=== PATIENT | female | born 1990 | race Caucasian/White ===

== ENCOUNTER 2018-03-30 13:10 | Emergency (ER) | payer OTHER ==
[~2018-03-30] VITALS: Ht 152.4 cm; Wt 69.9 kg
[~2018-03-30 13:10] MED LIST: benadryl; prednisone
[2018-03-30 13:15] VITALS: BP 132/82
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
[2018-03-30 13:39] VITALS: BP 130/80
--- NOTE | 2018-03-30 13:39 | NUR ---
Patient discharged with v/s stable. Written and verbal after care instructions given and explained. Patient verbalized understanding. Ambulatory with steady gait. All questions addressed prior to discharge. Advised to follow up with PMD.
== END 2018-03-30 13:39 | disposition home or self-care (01) ==
LOC: MED 13:10
DX: Z02.89 Encounter for other administrative examinations (principal)
CPT/HCPCS: 99283

== ENCOUNTER 2019-03-13 19:54 | Emergency (ER) | payer OTHER ==
[~2019-03-13] VITALS: Ht 152.4 cm; Wt 66.7 kg
[2019-03-13 19:59] VITALS: BP 108/71
--- NOTE | 2019-03-13 21:40 | NUR ---
PT DID NOT RESPOND WHEN CALLED IN LOBBY
--- NOTE | 2019-03-13 21:50 | NUR ---
PT WAS CALLED, NO ANSWER IN LOBBY.
--- NOTE | 2019-03-13 23:18 | NUR ---
CALLED FOR PT, NO ANSWER IN LOBBY, PT LWBS AT [phone]
== END 2019-03-13 23:18 | disposition left against medical advice (07) ==
LOC: MED 19:54
DX: R11.2 Nausea with vomiting, unspecified (principal); R50.9 Fever, unspecified; R10.9 Unspecified abdominal pain; Z53.21 Procedure and treatment not carried out due to patient leaving prior to being seen by health care provider

== ENCOUNTER 2021-07-15 17:55 | Emergency (ER) | payer OTHER ==
[~2021-07-15] VITALS: Ht 152.4 cm; Wt 78.0 kg
[2021-07-15 18:34] VITALS: BP 117/71
--- NOTE | 2021-07-15 18:40 | NUR ---
PT SENT TO LOBBY
[2021-07-15 19:17] LABS: BASOPHILS % (AUTO) 0.6 % (0.0-2.0); EOSINOPHILS # (AUTO) 0.8 K/uL (0-0.4); EOSINOPHILS % (AUTO) 12.9 % (0.0-4.0); HEMATOCRIT 35.3 % (36-48); HEMOGLOBIN 11.6 g/dL (12.0-16.0); LYMPHOCYTES # (AUTO) 2.1 K/uL (2.5-16.5); LYMPHOCYTES % (AUTO) 33.8 % (20.5-51.1); MEAN CORPUSCULAR HEMOGLOBIN 27 pg (27-31); MEAN CORPUSCULAR HGB CONC 33 g/dL (33-37); MEAN CORPUSCULAR VOLUME 83.2 fL (80-94); MONOCYTES # (AUTO) 0.7 K/uL (0.8-1.0); MONOCYTES % (AUTO) 10.7 % (1.7-9.3); NEUTROPHILS # (AUTO) 2.6 K/uL (1.8-7.7); PLATELET COUNT (AUTO) 314 K/uL (140-450); RED BLOOD CELL COUNT(AUTO) 4.24 MIL/uL (4.20-5.40); WHITE BLOOD COUNT (AUTO) 6.2 K/uL (4.8-10.8)
[2021-07-15 19:55] LABS: ALBUMIN 3.7 g/dL (3.4-5.0); ANION GAP 13.7 (8-16); CARBON DIOXIDE 24.2 mmol/L (21-32); CREATININE 0.8 mg/dL (0.6-1.3); POTASSIUM 3.9 mmol/L (3.5-5.1); TOTAL BILIRUBIN 0.1 mg/dL (0.0-1.0)
[2021-07-15 21:00] VITALS: BP 117/71
== END 2021-07-15 21:00 | disposition home or self-care (01) ==
LOC: MED 17:55
DX: F41.9 Anxiety disorder, unspecified (principal); R20.2 Paresthesia of skin
CPT/HCPCS: 36415; 71045; 80053; 85025; 93005; 93970; 99285; Q0092

== ENCOUNTER 2022-11-07 00:25 | Emergency (ER) | payer OTHER ==
[~2022-11-07] VITALS: Ht 167.6 cm; Wt 78.5 kg
[2022-11-07 00:45] VITALS: BP 113/60
--- NOTE | 2022-11-07 00:52 | NUR ---
PT TAKEN TO BED 11
[2022-11-07 01:31] LABS: BASOPHILS % (AUTO) 0.5 % (0.0-2.0); EOSINOPHILS # (AUTO) 0.4 K/uL (0-0.4); EOSINOPHILS % (AUTO) 5.1 % (0.0-4.0); HEMATOCRIT 23.4 % (36-48); HEMOGLOBIN 7.6 g/dL (12.0-16.0); LYMPHOCYTES % (AUTO) 13.8 % (20.5-51.1); MEAN CORPUSCULAR HEMOGLOBIN 25 pg (27-31); MEAN CORPUSCULAR HGB CONC 33 g/dL (33-37); MEAN CORPUSCULAR VOLUME 75.1 fL (80-94); MONOCYTES # (AUTO) 0.6 K/uL (0.8-1.0); MONOCYTES % (AUTO) 8.3 % (1.7-9.3); NEUTROPHILS # (AUTO) 5.3 K/uL (1.8-7.7); NEUTROPHILS % (AUTO) 72.3 % (42.2-75.2); PLATELET COUNT (AUTO) 228 K/uL (140-450); RED BLOOD CELL COUNT(AUTO) 3.12 MIL/uL (4.20-5.40); RED CELL DISTRIBUTION WIDTH 18.4 % (11.6-13.7); WHITE BLOOD COUNT (AUTO) 7.3 K/uL (4.8-10.8)
[2022-11-07 01:45] LABS: PROTHROMBIN TIME 11.8 secs (10.8-13.4)
[2022-11-07 01:47] LABS: ALBUMIN 3.4 g/dL (3.4-5.0); ANION GAP 11.1 (8-16); CARBON DIOXIDE 24.3 mmol/L (21-32); CREATININE 0.8 mg/dL (0.6-1.3); POTASSIUM 3.4 mmol/L (3.5-5.1); TOTAL BILIRUBIN 0.3 mg/dL (0.0-1.0)
[2022-11-07 01:57] LABS: APPEARANCE,URINE CLOUDY (CLEAR); BILIRUBIN,URINE NEGATIVE (NEGATIVE); BLOOD, URINE 3+ (NEGATIVE); COLOR,URINE RED (YELLOW); LEUKOCYTE ESTERASE ,URINE 1+ (NEGATIVE); NITRITE, URINE POSITIVE (NEGATIVE); UGLUCOSE TRACE (NEGATIVE)
[2022-11-07 02:13] LABS: RBC,URINE 80-100 /HPF (0-5)
[2022-11-07 02:47] VITALS: BP 113/60
--- NOTE | 2022-11-07 02:47 | NUR ---
PATIENT ELOPED FROM FACILITY. DISCHARGE INSTRUCTIONS NOT GIVEN TO PATIENT. DR. henderson NOTIFIED.
== END 2022-11-07 02:47 | disposition left against medical advice (07) ==
LOC: MED 00:25
DX: N93.9 Abnormal uterine and vaginal bleeding, unspecified (principal); R53.1 Weakness; R55 Syncope and collapse; Z53.21 Procedure and treatment not carried out due to patient leaving prior to being seen by health care provider
CPT/HCPCS: 36415; 80053; 81001; 81025; 85025; 85610; 85730; 87086; 99281; 99283

== ENCOUNTER 2022-11-10 10:54 | Observation (INO) | payer OTHER ==
[~2022-11-10] VITALS: Ht 152.4 cm; Wt 78.9 kg
[2022-11-10 11:14] VITALS: BP 110/70
--- NOTE | 2022-11-10 11:30 | NUR ---
PT AMBULATED TO BED 5
--- NOTE | 2022-11-10 11:33 | NUR ---
KAMRON BERNABE AT BEDSIDE FOR EVALUATION
--- NOTE | 2022-11-10 11:56 | NUR ---
32 YO F PRESENTS W/RLQ PAIN X 2 DAYS AND BLEEDING NONE STOP SINCE 10/05/22, FAINT EPISODE 2 DAYS AGO. DENIES N,V,D,C, GÓMEZ, URINARY SYMPTOMS, SAFETY MAINTAINED. P:2 A:0
[2022-11-10 11:59] LABS: EOSINOPHILS # (AUTO) 0.4 K/uL (0-0.4); EOSINOPHILS % (AUTO) 5.2 % (0.0-4.0); LYMPHOCYTES # (AUTO) 1.3 K/uL (2.5-16.5); MONOCYTES # (AUTO) 0.6 K/uL (0.8-1.0); NEUTROPHILS # (AUTO) 5.1 K/uL (1.8-7.7); NEUTROPHILS % (AUTO) 68.9 % (42.2-75.2); WHITE BLOOD COUNT (AUTO) 7.4 K/uL (4.8-10.8)
--- NOTE | 2022-11-10 12:08 | NUR ---
US AT BEDSIDE
[2022-11-10 12:11] LABS: ALBUMIN 3.5 g/dL (3.4-5.0); ANION GAP 11.3 (8-16); CARBON DIOXIDE 24.6 mmol/L (21-32); CREATININE 0.6 mg/dL (0.6-1.3); POTASSIUM 3.9 mmol/L (3.5-5.1); TOTAL BILIRUBIN 0.3 mg/dL (0.0-1.0)
[2022-11-10 12:13] LABS: BASOPHILS % (AUTO) 0.4 % (0.0-2.0); HEMATOCRIT 21.3 % (36-48); LYMPHOCYTES % (AUTO) 17.6 % (20.5-51.1); MEAN CORPUSCULAR HEMOGLOBIN 25 pg (27-31); MEAN CORPUSCULAR HGB CONC 33 g/dL (33-37); MEAN CORPUSCULAR VOLUME 74.7 fL (80-94); MONOCYTES % (AUTO) 7.9 % (1.7-9.3); PLATELET COUNT (AUTO) 256 K/uL (140-450); RED BLOOD CELL COUNT(AUTO) 2.86 MIL/uL (4.20-5.40); RED CELL DISTRIBUTION WIDTH 17.8 % (11.6-13.7)
[2022-11-10 12:18] LABS: APPEARANCE,URINE CLEAR (CLEAR); BILIRUBIN,URINE NEGATIVE (NEGATIVE); BLOOD, URINE 3+ (NEGATIVE); COLOR,URINE YELLOW (YELLOW); LEUKOCYTE ESTERASE ,URINE 1+ (NEGATIVE); NITRITE, URINE NEGATIVE (NEGATIVE); UGLUCOSE NEGATIVE (NEGATIVE)
[2022-11-10 12:52] LABS: RBC,URINE 20-50 /HPF (0-5); TRICHOMONAS,URINE None Seen /HPF (None Seen); YEAST,URINE None Seen /HPF (None Seen)
[2022-11-10] MEDS ORDERED: ACETAMINOPHEN 325 MG TAB PO PRN (12:55)
[2022-11-10] MEDS ORDERED: MAGNESIUM OXIDE 400 MG TAB PO PRN (12:55)
[2022-11-10] MEDS ORDERED: POTASSIUM CHLORIDE 10 MEQ TABER PO PRN (12:55)
[2022-11-10] MEDS ORDERED: ONDANSETRON 4 MG/2 ML VIAL IVP PRN (12:55)
[2022-11-10] MEDS: NACL 0.9% 1,000 ML IV SCH (13:29)
--- NOTE | 2022-11-10 14:00 | NUR ---
RECEIVED PT FROM ED. PATIENT SENSITIVE TO TOUCH. ESTABLISHED RAPORT WITH PATIENT. PATIENT REASSURED. TUCKED IN BED. PATIENT LOOKS RELAXED NOW THAT SHE HAS BEEN PUT INTO A ROOM.
--- NOTE | 2022-11-10 14:20 | NUR ---
Patient will be admitted to care of MD GARCIA. Admited to TELE. Will go to room 111B. Belongings list completed. Report to JOSE ANGEL OSWALD.
--- NOTE | 2022-11-10 14:21 | NUR ---
The patient's care was reviewed and supervised by Karol Nelson, RN, RN.
--- NOTE | 2022-11-10 14:50 | NUR ---
PATIENT SEEN AND ASSESSED FOR ADMISSION. PATIENT ASKS WHAT ARE THE PLANS AND PATIENT IS TOLD, FURTHER TESTS WILL BE DONE TO DETERMINE CAUSE OF BLEEDING PER DOCTOR'S ORDERS AND NOTES. PATIENT VERBALIZES UNDERSTANDNG.
--- NOTE | 2022-11-10 15:00 | NUR ---
PATIENT BLOOD READY IN BLOOD BANK. HOWEVER NO SIGNED CONSENT FORM PRESENT. CONSENT FORMS PRINTED
--- NOTE | 2022-11-10 19:20 | NUR ---
UNABLE TO ACQUIRE SIGNED CONSENT FROM ED MD, ENDORSED TO PM SHIFT NURSE FOR FOLLOW UP. ENDORSED PATENT TO PM NURSE FOR CONTINUATION OF CARE.
[2022-11-10 20:00] VITALS: BP 89/55
--- NOTE | 2022-11-10 20:00 | NUR ---
ASSUMED CARE OF PATIENT AT THIS TIME. VSS. AFEBRILE. RESPIRATIONS EVEN AND UNLABORED. NO SOB NOTED. IVF INFUSING AT THIS TIME. NO ACUTE DISTRESS NOTED. WAITING FOR ER DOCTOR TO SIGN BLOOD TRANSFUSION CONSENT. NO ACUTE DISTRESS NOTED AT THIS TIME. WILL CONTINUE TO MONITOR FOR SAFETY. Renu RHODES RN.
[2022-11-10 20:45] VITALS: BP 118/67
--- NOTE | 2022-11-10 20:48 | NUR ---
1 UNIT PRBC STARTED ORDERED. WILL CONTINUE TO MONITOR FOR SAFETY. Renu RHODES RN.
[2022-11-10 21:03] VITALS: BP 114/68
--- NOTE | 2022-11-10 21:03 | NUR ---
PATIENT TOLERATING BLOOD TRANSFUSION WELL WITH NO SIGNS OR SYMPTOMS OF A ADVERSE REACTION NOTED. Renu RHODES RN.
[2022-11-10] MEDS ORDERED: HYDROcodone/APAP 5/325 MG 1 TAB TAB PO PRN (21:10)
[2022-11-10 22:50] VITALS: BP 105/67
--- NOTE | 2022-11-10 22:50 | NUR ---
1 UNIT PRBC TRANSFUSION COMPLETE WITH NO ADVERSE REACTIONS NOTED. Renu RHODES RN.
[2022-11-11] VITALS: BP 101/57
--- NOTE | 2022-11-11 01:00 | NUR ---
PATIENT SLEEPING COMFORTABLY WITH NO DISTRESS NOTED. Renu RHODES RN.
[2022-11-11] MEDS: NACL 0.9% 1,000 ML IV SCH ×2 (03:30→14:17)
[2022-11-11 04:00] VITALS: BP 108/60
--- NOTE | 2022-11-11 06:00 | NUR ---
PATIENT SLEPT WELL THROUGH THE NIGHT. NO ACUTE DISTRESS NOTED. REMAINS IN STABLE CONDITION. Renu RHODES RN.
[2022-11-11 06:51] LABS: ANION GAP 11.7 (8-16); CREATININE 0.5 mg/dL (0.6-1.3); POTASSIUM 3.7 mmol/L (3.5-5.1)
[2022-11-11 06:56] LABS: BASOPHILS % (AUTO) 0.7 % (0.0-2.0); EOSINOPHILS # (AUTO) 0.5 K/uL (0-0.4); EOSINOPHILS % (AUTO) 9.5 % (0.0-4.0); HEMATOCRIT 22.6 % (36-48); HEMOGLOBIN 7.5 g/dL (12.0-16.0); LYMPHOCYTES # (AUTO) 1.3 K/uL (2.5-16.5); LYMPHOCYTES % (AUTO) 23.3 % (20.5-51.1); MEAN CORPUSCULAR HEMOGLOBIN 26 pg (27-31); MEAN CORPUSCULAR HGB CONC 33 g/dL (33-37); MEAN CORPUSCULAR VOLUME 76.4 fL (80-94); MONOCYTES # (AUTO) 0.6 K/uL (0.8-1.0); MONOCYTES % (AUTO) 9.8 % (1.7-9.3); NEUTROPHILS # (AUTO) 3.2 K/uL (1.8-7.7); NEUTROPHILS % (AUTO) 56.7 % (42.2-75.2); PLATELET COUNT (AUTO) 246 K/uL (140-450); RED BLOOD CELL COUNT(AUTO) 2.96 MIL/uL (4.20-5.40); RED CELL DISTRIBUTION WIDTH 18.2 % (11.6-13.7)
--- NOTE | 2022-11-11 07:25 | NUR ---
receive the patient from the fast food shift lead rn in rm 111B with admitting diagnosis fo vaginal bleeding aox4 ambulatory . hemoglobin of 7.5 hematocrit 22,6 . no bleeding at this time will continue to monitor
[2022-11-11 08:00] VITALS: BP 90/47
[2022-11-11 09:25] LABS: WHITE BLOOD COUNT (AUTO) 5.7 K/uL (4.8-10.8)
--- NOTE | 2022-11-11 09:31 | NUR ---
PATIENT HAS BEEN SCREENED AND CATEGORIZED LOW NUTRITION RISK. PATIENT WILL BE SEEN WITHIN 7 DAYS OF ADMISSION. 11/17/[address]
[2022-11-11 12:00] VITALS: BP 91/53
[2022-11-11] MEDS ORDERED: ACET-1182 PO (13:19)
[2022-11-11] MEDS ORDERED: FERR-20 PO (13:19)
[2022-11-11 14:26] VITALS: BP 105/55
[2022-11-11 14:31] VITALS: BP 91/53
--- NOTE | 2022-11-11 14:39 | NUR ---
made some discharge patient teaching
--- NOTE | 2022-11-20 12:47 | NUR ---
late entry: IVF was discontinued at 1425 on 11/11/22 verified by primary RN. Pt was discharged shortly after sat 1439.
== END 2022-11-11 15:15 | disposition home or self-care (01) ==
LOC: MED 10:54 → MTU 12:54
PROVIDERS: ADMIT Student in an Organized Health Care Education/Training Program; ATTEND Student in an Organized Health Care Education/Training Program
DX: O02.0 Blighted ovum and nonhydatidiform mole (principal); Z20.822 Contact with and (suspected) exposure to COVID-19; E86.1 Hypovolemia; D62 Acute posthemorrhagic anemia; N93.9 Abnormal uterine and vaginal bleeding, unspecified; Z79.899 Other long term (current) drug therapy
CPT/HCPCS: 36415; 36430; 76856; 80048; 80053; 81001; 83735; 84702; 85025; 86886; 86900; 86901; 86920; 87081; 87086; 87426; 87491; 96360; 96361; 99284; G0378; P9016; Q0092